=== PATIENT | female | born 1970 | race American Indian/Alaskan Native ===

== ENCOUNTER 2019-02-13 19:23 | Emergency (ER) | payer OTHER ==
[2019-02-13 19:37] VITALS: BP 174/103
--- NOTE | 2019-02-13 20:08 | Event Note ---
ED Screening Note ED Screening Note: headache with inc bp told by vein today and yest to see md pcp could not see her has gained weight- causing bp to inc no focal deficit no cp no sob rx none lmp 1 w ago pmh past smoker- 8 y ago htn- because diet controlled; does not recall med; made her feel bad This initial assessment/diagnostic orders/clinical plan/treatment(s) is/are subject to change based on patients health status, clinical progression and re- assessment by fellow clinical providers in the ED. Further treatment and workup at subsequent clinical providers discretion. Patient/guardian urged not to elope from the ED as their condition may be serious if not clinically assessed and managed. Initial orders include: mse
--- NOTE | 2019-02-13 20:10 | Emergency Department Report ---
Chief Complaint: High BP Stated Complaint: POSS HIGH BP Time Seen by Provider: 02/13/19 20:03 - HPI History of Present Illness: hx htn took off meds due to her weight loss inc weight over holidays having vein procedures and told her it was high family concerned so she comes to er with borderline bp no cp no sob neuro intact ambulatory and nad educated on htn and tx she has appnt on Sun with her pcp mse to home with pcp follow up - Exam Vital Signs: Vital Signs 02/13/19 19:31 Temperature 98.3 F Pulse Rate 70 Respiratory 16 Rate Blood Pressure 174/103 O2 Sat by Pulse 98 Oximetry MSE screening note: Focused history and physical exam performed. Due to findings the following was ordered: ED Disposition for MSE Clinical Impression: Elevated blood pressure reading Disposition: MED SCREENING EXAM-LEFT Is pt being admited?: No Does the pt Need Aspirin: No Condition: Stable Additional Instructions: diet as we discussed no fried or fast food no added salt to food hydrate well with water walk daily follow up pcp on Sun take your list of bp's with you relax Referrals: UNIQUE LIANG MD [Staff Physician] - 3-5 Days Time of Disposition: :09
== END 2019-02-14 00:06 | disposition left against medical advice (07) ==
LOC: ED 19:23
DX: R51 Headache (principal); I10 Essential (primary) hypertension; F17.200 Nicotine dependence, unspecified, uncomplicated